=== PATIENT | male | born 1975 | race Caucasian/White ===

== ENCOUNTER 2018-01-21 21:57 | Emergency (ER) | payer SELFPAY ==
[2018-01-21 22:20] VITALS: BP 161/115; PULSE 102; TEMP 99; BMI 34.9
--- NOTE | 2018-01-22 01:31 | PDOC ---
History of Present Illness - General Chief Complaint: Respiratory Stated Complaint: COUGHING Time Seen by Provider: 01/22/18 01:08 History Source: Patient, Family Exam Limitations: No Limitations - History of Present Illness Initial Comments: 01/22/18 01:26 42yoM presents w/ 2d of URI. Cough, body aches, sore throat, sinus congestion, malaise. Taking OTC medications -- NYQuil, vicks vapor rub, tylenol -- w/ minimal relief. ' no pmhx never smoker no allergies. Past History - Past Medical History Allergies/Adverse Reactions: Allergies Allergy/AdvReac Type Severity Reaction Status Date / Time No Known Allergies Allergy Verified 01/21/18 22:16 Home Medications: Ambulatory Orders Benzonatate [Tessalon Pearls -] 200 mg PO TID PRN #12 cap 01/22/18 COPD: No - Suicide/Smoking/Psychosocial Hx Smoking History: Never smoked Review of Systems - Review of Systems All Other Systems: Reviewed and Negative *Physical Exam - Vital Signs Last Vital Signs Temp Pulse Resp BP Pulse Ox 99 F 102 H 20 161/115 98 01/21/18 22:16 01/21/18 22:16 01/21/18 22:16 01/21/18 22:16 01/21/18 22:16 - Physical Exam Comments: 01/22/18 01:28 NAD, coughing dry cough EOMI, Wilfredo Post OP w/ mild eryhma, no edema, no exudate no cervical LAD RRR no m/r/g CTABL, no w/r/r soft NTND no rash A&O x 3, gait WNL, mood/affect WNL. Medical Decision Making - Medical Decision Making 01/22/18 01:29 43yoM with no med problems presnets w/ URI and cough seeking sxs control. Chest clear, no crackles/wheezing/ronchi. - DC w/ sxs control. Will Rx tessalon pereles. - discussed supportive care. *DC/Admit/Observation/Transfer Diagnosis at time of Disposition: URI (upper respiratory infection) - Discharge Dispostion Disposition: HOME Condition at time of disposition: Good Decision to Admit order: No - Prescriptions Prescriptions: Benzonatate [Tessalon Pearls -] 200 mg PO TID PRN #12 cap PRN Reason: Cough - Referrals - Patient Instructions Printed Discharge Instructions: DI for Viral Upper Respiratory Infection -- Adult Additional Instructions: Rest drink plenty of fluids Continue taking medications for your symptoms: Tylenol for fever over 100.4F (38C) Ibuprofen for aches and pains Cough Drops (Luis Ribera) for sore throat and coughing Decongestant for runny nose. - Post Discharge Activity Forms/Work/School Notes: Back to Work
[2018-01-22] MEDS ORDERED: guaiFENesin/D-M SUGAR-FREE/ACLHOL-FREE 118 ML BOTTLE PO ONE (01:34)
[2018-01-22] MEDS ORDERED: IBUPROFEN 600 MG TABLET (FP) PO ONE ×2 (01:35→01:38)
[2018-01-22] MEDS ORDERED: guaiFENesin 200 MG/10 ML 10 ML UNIT-DOSE CUPS ONE (01:37)
== END 2018-01-22 01:53 | disposition home or self-care (01) ==
LOC: JER 21:57
DX: J06.9 Acute upper respiratory infection, unspecified (principal)
CPT/HCPCS: 99281-25